=== PATIENT | female | born 1955 | race Caucasian/White ===

== ENCOUNTER 2016-09-05 10:53 | Emergency (ER) | payer OTHER, MEDICARE ==
[2016-09-05] MEDS ORDERED: NS 0.9% 1000 ML* 1,000 ML IV ONE (12:11)
--- NOTE | 2016-09-05 12:58 | RAD ---
Indication: Right-sided headache, previous right MCA aneurysm clipping. CT of the brain was performed without IV contrast. Ventricular structures are midline. No midline shift is noted. The extra-axial spaces are unremarkable. There is no evidence of intracranial mass or hemorrhage. The extra-axial spaces are unremarkable. The patient is status post right temporal craniotomy with a aneurysm clip in the middle cranial fossa unchanged since previous exam. Paranasal sinuses and orbits are otherwise unremarkable. IMPRESSION: Postoperative changes in the right middle cranial fossa. No intracranial mass or hemorrhage is noted.
--- NOTE | 2016-09-05 13:04 | RAD ---
INDICATION: Right-sided headache and facial pain, chronic sinusitis symptoms. COMPARISON: There are no prior studies available for comparison. TECHNIQUE: Contiguous axial sections of the axial images of the facial bones were obtained and reconstructed in the coronal and sagittal planes. FINDINGS: No focal facial soft tissue swelling is seen. The frontal, ethmoid, maxillary and sphenoid sinuses all appear clear. The ostiomeatal complexes are patent on both sides. 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 The nasal septum is midline. The nasal passageways appear clear. The posterior nasopharyngeal region appears to be within normal limits. The patient is status post right frontal temporal craniotomy. The parotid and submandibular glands appear to be within normal limits. No significant enlarged lymph nodes are seen. IMPRESSION: THE SINUSES ARE CLEAR.
--- NOTE | 2016-09-05 13:07 | RAD ---
INDICATION: Persistent cough. COMPARISON: Comparison is made with a prior study from August 01, 2011. TECHNIQUE: Dual-energy PA and lateral views of the chest were obtained. FINDINGS: The heart is within normal limits in size. Mediastinal and hilar contours appear within normal limits. The lungs are slightly hyperinflated and clear. No pleural effusion is seen. IMPRESSION: NO EVIDENCE FOR ACTIVE CARDIOPULMONARY DISEASE.
[2016-09-05 13:38] LABS: Hematocrit 45 % (35-47); Hemoglobin 15.1 g/dl (12.0-16.0); Mean Corpuscular HGB Conc 34 g/dl (31-36); Mean Corpuscular Hemoglobin 30 pg (27-31); Mean Corpuscular Volume 88 fL (80-97); Mean Platelet Volume 9 um3 (7.4-10.4); Red Cell Distribution Width 13 % (10.5-15); White Blood Count 7.1 10^3/ul (3.5-10.8)
[2016-09-05] MEDS ORDERED: Ketorolac INJ* 30 MG/ML 1 ML VIAL IV PUSH ONE (13:50)
[2016-09-05] MEDS ORDERED: PROCHLORPERAZINE INJ 5 MG/ML 2 ML VIAL IV ONE (13:51)
[2016-09-05] MEDS ORDERED: diPHENhydraMINE IV* 50 MG/ML 1 ml VIAL (BENADRYL) IV ONE (13:51)
[2016-09-05 13:52] LABS: Potassium 4.5 mmol/L (3.5-5.0)
[2016-09-05 13:53] LABS: Albumin 4.3 g/dL (3.2-5.2); BUN/Creatinine Ratio 19.4 (8-20); Calcium 9.6 mg/dL (8.6-10.3); EGFR African American 105.9 (>60); EGFR Non-African American 82.3 (>60); Globulin 2.7 g/dL (2-4); Total Bilirubin 0.4 mg/dL (0.2-1.0)
[2016-09-05 15:13] LABS: Erythrocyte Sed Rate 11 mm/Hr (0-30)
--- NOTE | 2016-09-05 15:42 | ED ---
Headache - HPI Summary HPI Summary: Pt here w/ Rt sided ALEXANDER w/ ocular involvement prior to arriving. Rt eye was bouncing everywhere and she had difficulty focusing. This has stopped now but ALEXANDER continues. Starts over Rt cheek and moves all the way back along side of head - feels pressure/pain here. H/o anuerysm Rt Middle cerebral a. and is very fearful something is going on with this. Denies chest pain, neck pain, shortness of breath, tinnitus, nausea, vomiting. No recent head injuries, MVA, fall. - History Of Current Complaint Chief Complaint: EDHeadache Stated Complaint: EYE DISTURBANCE/PRESSURE BEHIND EYE Time Seen by Provider: 09/05/16 11:53 Hx Obtained From: Patient, Family/[employer] - Hx Last Menstrual Period: "20 years ago." - Allergies/Home Medications Allergies/Adverse Reactions: Allergies Allergy/AdvReac Type Severity Reaction Status Date / Time Codeine Allergy Itching Verified 07/01/16 09:05 PMH/Surg Hx/FS Hx/Imm Hx Previously Healthy: No - PTSD, URI w/ cough x 1month Endocrine/Hematology History: Denies: Hx Anticoagulant Therapy, Hx Diabetes, Hx Thyroid Disease Cardiovascular History: Reports: Hx Aneurysm - Rt middle cerebral a, Other Cardiovascular Problems/Disorders - rx'd lipitor but doesn't take this Denies: Hx Congestive Heart Failure, Hx Deep Vein Thrombosis, Hx Hypertension , Hx Myocardial Infarction, Hx Pacemaker/ICD Respiratory History: Reports: Hx Asthma Denies: Hx Chronic Obstructive Pulmonary Disease (COPD), Hx Lung Cancer, Hx Pneumonia, Hx Pulmonary Embolism GI History: Denies: Hx Gall Bladder Disease, Hx Gastrointestinal Bleed, Hx Ulcer, Hx Urosepsis History: Denies: Hx Kidney Stones, Hx Renal Disease Neurological History: Denies: Hx Dementia, Hx Migraine, Hx Seizures, Hx Transient Ischemic Attacks (TIA) Psychiatric History: Reports: Hx Depression - She was on citalopram but has been off this medication since 05/2016, Hx Post Traumatic Stress Disorder Denies: Hx Anxiety, Hx Schizophrenia, Hx Bipolar Disorder - Cancer History Cancer Type, Location and Year: ovarian - Surgical History Surgery Procedure, Year, and Place: Clips for Rt middle CA aneurysm; cyst right thigh; tonsils; laser surgery for ovarian cancer. 100% disabled Infectious Disease History: No Infectious Disease History: Denies: Hx Clostridium Difficile, Hx Hepatitis, Hx Human Immunodeficiency Virus (HIV), Hx of Known/Suspected MRSA, Hx Shingles, Hx Tuberculosis, Hx Known/ Suspected VRE, Hx Known/Suspected VRSA, History Other Infectious Disease, Traveled Outside the [place] in Last 30 Days - Family History Known Family History: Positive: Hypertension, Diabetes Negative: Cardiac Disease - Social History Occupation: Disabled Lives: With Family - Alcohol Use: None Substance Use Type: Reports: None, Prescribed Smoking Status (MU): Current Every Day Smoker Type: Cigarettes Amount Used/How Often: 1 ppd Length of Time of Smoking/Using Tobacco: since age 12 Have You Smoked in the Last Year: Yes Review of Systems Positive: Fatigue. Negative: Fever, Chills Positive: Photophobia, Blurred Vision - In Rt eye - difficulty focusing earlier today. Negative: Diplopia, Drainage, Erythema Positive: Other - sinus pain/pressure along Rt cheek. Negative: Sore Throat, Ear Ache, Nasal Discharge Negative: Palpitations, Chest Pain Positive: Cough - chronic as in HPI. Negative: Shortness Of Breath Positive: Nausea - mild - reduced appetite but still eating and drinking, Other. Negative: Abdominal Pain, Vomiting, Diarrhea Positive: no symptoms reported Negative: Arthralgia, Myalgia, Decreased ROM, Edema Negative: Rash, Bruising Positive: Headache. Negative: Weakness, Paresthesia, Numbness, Syncope, Slurred Speech Positive: Anxious - it is mentioned has an appt w/ urology today for prostate CA f/u All Other Systems Reviewed And Are Negative: Yes Physical Exam Triage Information Reviewed: Yes Vital Signs On Initial Exam: Initial Vitals Temp Pulse Resp BP Pulse Ox 97.2 F 108 24 159/83 95 09/05/16 10:54 09/05/16 10:54 09/05/16 10:54 09/05/16 10:54 09/05/16 10:54 Vital Signs Reviewed: Yes Appearance: Positive: Well-Appearing, Well-Nourished, Pain Distress Skin: Positive: Warm, Dry Head/Face: Positive: Normal Head/Face Inspection - Rt maxillary sinus TTP Eyes: Positive: EOMI, HEATHER, Conjunctiva Clear - tearful w/ pain, anxiety, Other : - photosensitive ENT: Positive: Normal ENT inspection, Hearing grossly normal, Pharynx normal, TMs normal. Negative: Nasal congestion, Nasal drainage, Tonsillar swelling, Tonsillar exudate Dental: Negative: Percussion Tenderness @, Dental Fracture @ Neck: Positive: Supple, Nontender, No Lymphadenopathy Respiratory/Lung Sounds: Positive: Clear to Auscultation, Breath Sounds Present. Negative: Rales, Rhonchi, Stridor, Wheezes Cardiovascular: Positive: Normal, RRR, Pulses are Symmetrical in both Upper and Lower Extremities, S1, S2. Negative: Murmur, Rub, Leg Edema Left, Leg Edema Right Abdomen Description: Positive: Nontender, Soft Bowel Sounds: Positive: Present Musculoskeletal: Positive: Normal, Strength/ROM Intact - FROM cervical spine w/ o pain or restriction Neurological: Positive: Normal, Sensory/Motor Intact, Alert, Oriented to Person Place, Time, CN Intact II-III Psychiatric: Positive: Anxious - panicky - better after discussing plan and ordering CT's, CXR Diagnostics - Vital Signs Vital Signs Temp Pulse Resp BP Pulse Ox 09/05/16 10:54 97.2 F 108 24 159/83 95 - Laboratory Lab Results: Lab Results 09/05/16 09/05/16 09/05/16 Range/Units 13:30 13:30 13:30 WBC 7.1 (3.5-10.8) 10^3/ul RBC 5.10 (4.0-5.4) 10^6/ul Hgb 15.1 (12.0-16.0) g/dl Hct 45 (35-47) % MCV 88 (80-97) fL MCH 30 (27-31) pg MCHC 34 (31-36) g/dl RDW 13 (10.5-15) % Plt Count 206 (150-450) 10^3/ul MPV 9 (7.4-10.4) um3 Neut % (Auto) 70.6 (38-83) % Lymph % (Auto) 19.8 L (25-47) % [place] % (Auto) 8.0 (1-9) % Eos % (Auto) 1.1 (0-6) % Baso % (Auto) 0.5 (0-2) % Absolute Neuts (auto) 5.0 (1.5-7.7) 10^3/ul Absolute Lymphs (auto) 1.4 (1.0-4.8) 10^3/ul Absolute Monos (auto) 0.6 (0-0.8) 10^3/ul Absolute Eos (auto) 0.1 (0-0.6) 10^3/ul Absolute Basos (auto) 0 (0-0.2) 10^3/ul Absolute Nucleated RBC 0 10^3/ul Nucleated RBC % 0 ESR 11 (0-30) mm/Hr INR (Anticoag Therapy) 0.87 L (0.89-1.11) APTT 31.7 (26.0-36.3) seconds Sodium 138 (133-145) mmol/L Potassium 4.5 (3.5-5.0) mmol/L Chloride 105 (101-111) mmol/L Carbon Dioxide 29 (22-32) mmol/L Anion Gap 4 (2-11) mmol/L BUN 14 (6-24) mg/dL Creatinine 0.72 (0.51-0.95) mg/dL Est GFR ( Amer) 105.9 (>60) Est GFR (Non-Af Amer) 82.3 (>60) BUN/Creatinine Ratio 19.4 (8-20) Glucose 88 (70-100) mg/dL Lactic Acid (0.5-2.0) mmol/L Calcium 9.6 (8.6-10.3) mg/dL Total Bilirubin 0.40 (0.2-1.0) mg/dL AST 12 L (13-39) U/L ALT 12 (7-52) U/L Alkaline Phosphatase 74 (34-104) U/L Total Protein 7.0 (6.4-8.9) g/dL Albumin 4.3 (3.2-5.2) g/dL Globulin 2.7 (2-4) g/dL Albumin/Globulin Ratio 1.6 (1-3) 09/05/16 Range/Units 13:30 WBC (3.5-10.8) 10^3/ul RBC (4.0-5.4) 10^6/ul Hgb (12.0-16.0) g/dl Hct (35-47) % MCV (80-97) fL MCH (27-31) pg MCHC (31-36) g/dl RDW (10.5-15) % Plt Count (150-450) 10^3/ul MPV (7.4-10.4) um3 Neut % (Auto) (38-83) % Lymph % (Auto) (25-47) % [place] % (Auto) (1-9) % Eos % (Auto) (0-6) % Baso % (Auto) (0-2) % Absolute Neuts (auto) (1.5-7.7) 10^3/ul Absolute Lymphs (auto) (1.0-4.8) 10^3/ul Absolute Monos (auto) (0-0.8) 10^3/ul Absolute Eos (auto) (0-0.6) 10^3/ul Absolute Basos (auto) (0-0.2) 10^3/ul Absolute Nucleated RBC 10^3/ul Nucleated RBC % ESR (0-30) mm/Hr INR (Anticoag Therapy) (0.89-1.11) APTT (26.0-36.3) seconds Sodium (133-145) mmol/L Potassium (3.5-5.0) mmol/L Chloride (101-111) mmol/L Carbon Dioxide (22-32) mmol/L Anion Gap (2-11) mmol/L BUN (6-24) mg/dL Creatinine (0.51-0.95) mg/dL Est GFR ( Amer) (>60) Est GFR (Non-Af Amer) (>60) BUN/Creatinine Ratio (8-20) Glucose (70-100) mg/dL Lactic Acid 0.6 (0.5-2.0) mmol/L Calcium (8.6-10.3) mg/dL Total Bilirubin (0.2-1.0) mg/dL AST (13-39) U/L ALT (7-52) U/L Alkaline Phosphatase (34-104) U/L Total Protein (6.4-8.9) g/dL Albumin (3.2-5.2) g/dL Globulin (2-4) g/dL Albumin/Globulin Ratio (1-3) Result Diagrams: 09/05/16 13:30 09/05/16 13:30 Lab Statement: Any lab studies that have been ordered have been reviewed, and results considered in the medical decision making process. Re-Evaluation - Re-Evaluation First Eval Change: Improved - pt's anxiety improved after results of CT and CXR revealed Second Eval Change: Improved - ALEXANDER and visual sx improved s/p migraine cocktail Headache Course/Dx - Course Course Of Treatment: Pt presents w/ acute Rt sided ALEXANDER and visual change. There was initial concern for aneurysmal changes w/ h/o Rt middle CA aneurysm w/ clips however over the course of her visit, this was ruled out along with hemorrhage, tumor. Labs were unremarkable and CXR w/o acute findings. The cause of her headache was not definitively identified today however life threatening causes were not found. She also did not appear to have a sinus infection which was assessed d/t prolonged URI sx and Rt maxillary pain. It is suspected that chronic sleep interruption since sick w/ URI and with recent stress of ' s prostate cancer issues, she most likely has a migraine headache. Pt was treated with IV fluids, benadryl, prochlorperazine and toradol which improved sx - clincally appeared to have improved as well. Her visual changes had improved prior to arrival and did not recur while here. It was encouraged that pt rest and stay hydrated. Advised to follow-up with PCP in 1-2 days for further assesment. Reviewed danger s/sx of when to return to ED. Pt and woman with her (friend) voiced understanding and agree w/ plan. left part way through evaluation as he had a medical appt to address his prostate issues. - Diagnoses Provider Diagnoses: Unilateral headache Discharge - Discharge Plan Condition: Stable Disposition: HOME Patient Education Materials: Acute Headache (ED) Referrals: Steve Valerio MD [Primary Care Provider] - 2 Days Additional Instructions: The cause of your headache was not definitively identified today however you do not appear to have a bleed, anuerysm or tumor. You also do not appear to have a sinus infection. You have had URI sx for weeks which may be contributing to prolonged swelling along with sleep interruption. This may lead to a migraine headache which could be why your symptoms presented. You were treated with IV fluids, benadryl, prochlorperazine and toradol. It is encouraged that you rest when you return home and stay hydrated. Follow-up with your PCP in 1-2 days for further assesment. *If you develop facial asymmetry, weakness, numbness, visual change, difficulty speaking, fever, vomiting,chest pain, difficulty breathing, return to ED
[2016-09-05 16:01] VITALS: BP 132/76
== END 2016-09-05 16:01 | disposition home or self-care (01) ==
LOC: ED 10:53
DX: R51 Headache (principal); R53.83 Other fatigue; H53.141 Visual discomfort, right eye; H53.8 Other visual disturbances; R05 Cough; R11.0 Nausea; F17.210 Nicotine dependence, cigarettes, uncomplicated
CPT/HCPCS: 36415; 70450; 70486; 71020; 80053; 83605; 85025; 85610; 85652; 85730; 96374; 96376; 99282; J0780; J1200; J1885

== ENCOUNTER 2016-12-13 16:14 | Emergency (ER) | payer OTHER, MEDICARE ==
[2016-12-13 16:28] VITALS: BP 131/71
--- NOTE | 2016-12-13 16:59 | UC ---
Skin Complaint HPI - HPI Summary HPI Summary: TWO TICK BITES, ONE ON BOTH HIPS. NOTED AND REMOVED TICKS TODAY, THERE SINCE YESTERDAY. NO FEVER. AREAS FEEL SWOLLEN AND BURNING. TRIED TO TREAT THEM WITH SPRAY ON BENADRYL. - History of Current Complaint Chief Complaint: UCSkin Time Seen by Provider: 12/13/16 16:33 Stated Complaint: TICK BITES Hx Obtained From: Patient, Family/[employer] Hx Last Menstrual Period: "20 years ago." Onset/Duration: Sudden Onset, Lasting Days, Still Present Skin Exposure Onset/Duration: Days Ago Onset Severity: Mild Current Severity: Mild Location: Discrete - BILTERAL HIPS Character: Redness, Raised, Painful Aggravating: Nothing Alleviating: OTC Creams/Salves Associated Signs & Symptoms: Positive: Rash, Tenderness. Negative: Fever, Chills, Cough, Throat Tightening, Syncope, Drainage, Bruising, Red Streaks, Joint Swelling Related History: Insect Bite/Sting, Possible Reaction to: Insect - Allergy/Home Medications Allergies/Adverse Reactions: Allergies Allergy/AdvReac Type Severity Reaction Status Date / Time Codeine Allergy Itching Verified 12/13/16 16:29 Review of Systems Constitutional: Negative Skin: Rash Eyes: Negative ENT: Negative Respiratory: Negative Cardiovascular: Negative Gastrointestinal: Negative Genitourinary: Negative Motor: Negative Neurovascular: Negative Musculoskeletal: Negative Neurological: Negative Psychological: Negative All Other Systems Reviewed And Are Negative: Yes PMH/Surg Hx/FS Hx/Imm Hx Previously Healthy: Yes Endocrine History Of: Denies: Diabetes, Thyroid Disease, Hyperthyroidism, Hypothyroidism, Dyslipidemia Cardiovascular History Of: Denies: Cardiac Disorders, Hypertension, Pacemaker/ICD, Myocardial Infarction , Congestive Heart Failure, Atrial Fibrillation, Deep Vein Thrombosis, Bleeding Disorders Respiratory History Of: Reports: Asthma Denies: COPD, Bronchitis, Pneumonia, Pulmonary Embolism GI/ History Of: Denies: Gastroesophageal Reflux, Ulcer, Gastrointestinal Bleed, Gall Bladder Disease, Kidney Stones, Diverticulitis, Renal Disease, Urosepsis Neurological History Of: Denies: TIA, CVA, Dementia, Seizures, Migraine Psychological History Of: Reports: Depression - She was on citalopram but has been off this medication since 05/2016, Post Traumatic Stress Disorder Denies: Anxiety, Bipolar Disorder, Schizophrenia Cancer History Of: Denies: Lung Cancer, Colorectal Cancer, Breast Cancer, Prostate Cancer Other History Of: Negative For: HIV, Hepatitis B, Hepatitis C, Anticoagulant Therapy - Surgical History Surgical History: Yes Surgery Procedure, Year, and Place: Clips for Rt middle CA aneurysm; cyst right thigh; tonsils; laser surgery for ovarian cancer. 100% disabled - Family History Known Family History: Positive: Hypertension, Diabetes Negative: Cardiac Disease - Social History Lives: With Family Alcohol Use: None Substance Use Type: None, Prescribed Smoking Status (MU): Current Every Day Smoker Type: Cigarettes Amount Used/How Often: 1 ppd Length of Time of Smoking/Using Tobacco: since age 12 Have You Smoked in the Last Year: Yes Household Exposure Type: Cigarettes Cessation Counseling: Patient Advised to Stop - Immunization History Most Recent Influenza Vaccination: no Physical Exam Triage Information Reviewed: Yes Appearance: Well-Appearing, Well-Nourished, Pain Distress - MILD Vital Signs: Initial Vital Signs Temp 98.2 F 12/13/16 16:25 Pulse 101 12/13/16 16:25 Resp 12 12/13/16 16:25 BP 131/71 12/13/16 16:25 Pulse Ox 99 12/13/16 16:25 Vital Signs Reviewed: Yes Eye Exam: Normal ENT Exam: Normal ENT: Positive: Normal ENT inspection, Hearing grossly normal, Pharynx normal, TMs normal Dental Exam: Normal Neck exam: Normal Respiratory Exam: Normal Respiratory: Positive: Chest non-tender, Lungs clear, Normal breath sounds, No respiratory distress, No accessory muscle use Cardiovascular Exam: Normal Cardiovascular: Positive: RRR, No Murmur, Pulses Normal, Brisk Capillary Refill Abdominal Exam: Normal Musculoskeletal Exam: Normal Musculoskeletal: Positive: Strength Intact, ROM Intact Neurological Exam: Normal Psychological Exam: Normal Skin: Positive: rashes - 2CM X 2CM ERRETHEMATOUS RASHES ON BILATERAL HIPS Course/Dx - Differential Diagnoses - Skin Complaint Differential Diagnoses: Cellulitis, Contact Dermatitis, Impetigo, Local Allergic Reaction, Scabies, Tick Born Illness, Tinea - Diagnoses Provider Diagnoses: INSECT BITE x2 BILATERAL HIPS; TICK BITE PROPHYLAXIS Discharge - Discharge Plan Condition: Stable Disposition: HOME Prescriptions: DOXYcycline CAP(*) [DOXYcycline 100MG CAP(*)] 100 mg PO BID #14 cap Fluconazole [Diflucan 150 MG (NF)] 150 mg PO ONCE #1 tab Patient Education Materials: Insect Bite or Sting (ED), Tick Bite (ED) Referrals: Steve Valerio MD [Primary Care Provider] - Images Front/Back of Body, Lg (Boundary): 1 - RASH HERE 2 - RASH HERE
== END 2016-12-13 16:50 | disposition home or self-care (01) ==
LOC: UCEAST 16:14
DX: S70.262A Insect bite (nonvenomous), left hip, initial encounter (principal); S70.261A Insect bite (nonvenomous), right hip, initial encounter; W57.XXXA Bitten or stung by nonvenomous insect and other nonvenomous arthropods, initial encounter; Y92.9 Unspecified place or not applicable; F17.210 Nicotine dependence, cigarettes, uncomplicated
CPT/HCPCS: 99212; G0463